=== PATIENT | male | born 1995 | race Caucasian/White ===

== ENCOUNTER 2018-08-25 13:07 | Emergency (ER) | payer BC ==
[2018-08-25] MEDS ORDERED: PROPOFOL 200 MG/20 ML VIAL ONE (13:16)
--- NOTE | 2018-08-25 13:16 | EDPHY ---
H & P Stated Complaint: r ankle inj Time Seen by Provider: 08/25/18 13:13 - Personal History Current Tetanus/Diphtheria Vaccine: Unsure Current Tetanus Diphtheria and Acellular Pertussis (TDAP): Unsure - Medical/Surgical History Hx Asthma: No Hx Chronic Respiratory Disease: No Hx Diabetes: No Hx Cardiac Disease: No Hx Renal Disease: No Hx Cirrhosis: No Hx Alcoholism: No Hx HIV/AIDS: No Hx Splenectomy or Spleen Trauma: No Constitutional: Initial Vital Signs Temperature (C) 36.9 C 08/25/18 13:11 Heart Rate 126 H 08/25/18 13:11 Respiratory Rate 16 08/25/18 13:11 Blood Pressure 133/89 H 08/25/18 13:11 O2 Sat (%) 94 08/25/18 13:11 O2 Delivery Mode [Post Room Air Procedure 1st] O2 Delivery Mode [Procedural Non-Rebreather Mask 1st] O2 Delivery Mode [.Immediate Non-Rebreather Mask Pre-Procedure] O2 Delivery Mode Room Air O2 (L/minute) [Procedural 1st] 15 O2 (L/minute) [.Immediate Pre- 15 Procedure] O2 (L/minute) 15 Allergies/Adverse Reactions: No Known Allergies Allergy (Unverified 08/25/18 13:09) Home Medications: Medication Instructions Recorded AMOXICILLIN 08/25/18 Hydrocodone/APAP 5/325 [[place]atte 1 - 2 each PO Q4-6PRN PRN #20 tab 08/25/18 5/325] Ibuprofen [Motrin] 800 mg PO Q8 #20 tab 08/25/18 Medical Decision Making - Diagnostics Imaging Results: Imaging Impressions Ankle X-Ray 08/25/18 00:00 Impression: Interval reduction of dislocation with nonvisualization tiny fracture fragment seen previously. Ankle X-Ray 08/25/18 00:00 Impression: Subtalar dislocation with small osseous fragments proximal to the navicular. Imaging: Discussed imaging studies w/ call or contact centre manager Radiologist, I viewed and interpreted images myself ED Course/Re-evaluation: CHIEF COMPLAINT: Right ankle injury HISTORY OF PRESENT ILLNESS: The patient is a 22 y/o male arriving via private vehicle complaining of a right ankle injury after skateboarding today. Yesterday he was skateboarding and rolled his ankle but did not seek medical treatment. Today he was skateboarding down a flight of stairs when he missed the landing and injured his ankle. He has been unable to bear weight on the ankle due to pain. He last ate or drank anything this morning. No fever, headache, body aches, lightheadedness, chest pain, heart palpitations, shortness of breath, cough, abdominal pain, urinary or bowel complaints, numbness, paresthesias. REVIEW OF SYSTEMS: A 10 point review of systems was performed and is negative with the exception of the elements mentioned in the history of present illness. PHYSICAL EXAM: HR, BP, O2 Sat, RR. Temp noted General Appearance: Alert, well hydrated, appropriate, and non-toxic appearing. Head: Atraumatic without scalp tenderness or obvious injury Eyes: Pupils equal, round, reactive to light and accommodation, EOMI, no trauma , no injection. Ears: Clear bilaterally, no perforation, normal landmarks Nose: Atraumatic, no rhinorrhea, clear. Throat: There is no erythema or exudates, no lesions, normal tonsils, mucus membranes moist. Neck: Supple, 2+ carotid upstroke, nontender, no lymphadenopathy. Respiratory: No retractions, no distress, no wheezes, and no accessory muscle use. Lungs are clear to auscultation bilaterally. Cardiovascular: Regular rate and rhythm, no murmurs, rubs, or gallops. Bilateral carotid, radial, dorsalis pedis, and posterior tibial pulses intact. Good capillary refill all extremities. Gastrointestinal: Abdomen is soft, nontender, non-distended, no masses, no rebound, no guarding, no peritoneal signs. Musculoskeletal: Right ankle lateral skin tenting. Abrasion over right lateral malleolus. Neurovascularly intact below the injury, has stable joints above and below, no signs of open fracture, and no signs of compartment syndrome. Otherwise normal active ROM of all extremities, atraumatic. Neurological: Alert, appropriate, and interactive. The patient has normal DTRs and non-focal cranial nerves, motor, sensory, and cerebellar exam. Skin: No rashes, good turgor, no nodules on palpation. Past medical history: Rib fracture Past surgical history: Denies Family history: Denies Social history: Student at , single, lives in [place] DIAGNOSTICS/PROCEDURES/CRITICAL CARE TIME: Right ankle x-ray: Right sub-talar dislocation. No signs of fracture. Procedure: Conscious sedation. Indication: Reduction of Dislocation of Ankle The patient is an appropriate candidate to tolerate procedural sedation. The patient's vitals signs and mental status are appropriate. The risks, benefits and alternatives of the sedation were discussed with the patient. The patient is ASA classification 1. The patient's Mallampati airway score was 1 and the patient did meet the 3-3-2 airway measurements. A time out was completed. The patient was sedated with 60mg IV Propofol and 20mg IV Ketamine . The patient was monitored with continuous pulse oximetry, personnel monitor and end tidal CO2. There were no complications and no significant hypoxemia. I performed both the sedation and the procedure. The total time I spent at the bedside during the procedural sedation was 20 minutes. The patient was examined after the procedural sedation and has returned to their pre-sedation baseline with normal vital signs and a normal examination. Procedure: Reduction of Dislocation of Ankle Time-out completed immediately before the procedure. IV established. O2 administered. Placed on pulse oximeter and ETCO2 monitor. Neurovascular exam intact pre-procedure. Given 60mg IV Propofol and 20mg IV Ketamine for pain and sedation. The right ankle dislocation was reduced using traction. Reassessed post-procedure. Neurovascular status intact-normal Motor and sensory exam. Exam indicated reduction. Confirmed reduction on X-ray. Splint applied by the tech. The procedure was performed by myself, Dr. Schulz. Right ankle x-ray post-reduction: Good reduction of the right sub-talus dislocation. Right ankle CT: 3 small avulsions off the right talus. DIFFERENTIAL DIAGNOSIS: The differential diagnosis for the patient's ankle injury included but was not limited to dislocation, fracture, ligamentous injury, contusion, muscular strain. MEDICAL DECISION MAKING: The patient is a 22 y/o male arriving via private vehicle presenting with a right ankle injury after skateboarding today. Today he was skateboarding down a flight of stairs when he missed the landing and injured his ankle. On exam he has lateral tenting of the skin of the right ankle. I suspect he has a right ankle dislocation. He is neurovascularly intact below the injury, has stable joints above and below, no signs of open fracture, and no signs of compartment syndrome. Right ankle x-ray ordered. Patient will be moved to trauma room 1 for the ankle dislocation reduction. He is comfortable with this plan. 1324: 60mg IV Propofol and 20mg IV Ketamine administered. 1328: I consulted with Dr. Pereyra who was in the room during the reduction. Right ankle CT ordered per Dr. Pereyra to rule out occult fracture. 1420: I spoke with Dr. Goncalves, radiologist, who reports that there are 3 small avulsions off the right talus. 1423: Reassessed patient and discussed CT findings. His splint is applied well. I have advised him to follow up with Dr. Pereyra.I have also advised him to take Platte and Motrin as prescribed. Return precautions provided; patient is comfortable with this plan. - Data Points Medications Given: Discontinued Medications Ketamine HCl (Ketamine) 20 mg IVP EDNOW ONE Stop: 08/25/18 13:45 Last Admin: 08/25/18 13:20 Dose: 20 mg Propofol (Diprivan) 60 mg IVP EDNOW ONE Stop: 08/25/18 13:45 Last Admin: 08/25/18 13:20 Dose: 60 mg Departure - Departure Disposition: Home, Routine, Self-Care Clinical Impression: Dislocation of ankle Qualifiers: Encounter type: initial encounter Laterality: right Qualified Code(s): S93.04XA - Dislocation of right ankle joint, initial encounter Talus fracture Qualifiers: Encounter type: initial encounter Fracture type: closed Talus location: unspecified portion of talus Fracture alignment: displaced Laterality: right Qualified Code(s): S92.101A - Unspecified fracture of right talus, initial encounter for closed fracture Condition: Good Instructions: Crutch Instructions (ED), Talar Fracture in Adults (ED), Ankle Dislocation (ED) Additional Instructions: 1. Rest, ice, elevation. 2. Follow up with an orthopedic surgeon within one week. 3. Return to the emergency department for worsening pain, swelling, numbness, weakness or other concerns. 4. Wear splint at all times until reevaluation. 5. Take Platte and Motrin as prescribed. Referrals: Wale Pereyra MD [Medical Doctor] - As per Instructions Prescriptions: Hydrocodone/APAP 5/325 [Platte 5/325] 1 - 2 each PO Q4-6PRN PRN #20 tab PRN Reason: Pain, Moderate Ibuprofen [Motrin] 800 mg PO Q8 #20 tab Report Scribed for: Arcenio Schulz Report Scribed by: Lanny Terry Date of Report: 08/25/18 Time of Report: 13:24
[2018-08-25] MEDS ORDERED: KETAMINE 200 MG/20 ML VIAL ONE (13:17)
[2018-08-25] MEDS ORDERED: KETAMINE 500 MG/10 ML VIAL IVP ONE (13:44)
[2018-08-25] MEDS ORDERED: PROPOFOL 200 MG/20 ML VIAL IVP ONE (13:44)
[2018-08-25 14:57] VITALS: BP 99/53
== END 2018-08-25 14:55 | disposition home or self-care (01) ==
PROC: 0SS Lower Joints, Reposition (ICD-10-PCS; principal; 2018-08-25)
DX: S92.191A Other fracture of right talus, initial encounter for closed fracture (principal); S93.04XA Dislocation of right ankle joint, initial encounter; V00.138A Other skateboard accident, initial encounter; Y93.51 Activity, roller skating (inline) and skateboarding
CPT/HCPCS: J2704

== ENCOUNTER 2018-09-01 10:54 | Emergency (ER) | payer BC ==
--- NOTE | 2018-09-01 11:16 | EDPHY ---
H & P Smoking Status: Current some day smoker Time Seen by Provider: 09/01/18 11:05 HPI/ROS: CHIEF COMPLAINT: Right foot swelling HISTORY OF PRESENT ILLNESS: 22-year-old male initially seen the ER 6 days ago for right ankle injury after he rolled his foot and ankle skateboarding. He was found to have a subtalar dislocation as well as 3 small avulsion fractures off the right talus. He is given orthopedic follow-up information with Dr. Wale Pereyra whom he has not followed up yet. He was initially placed into a splint was changed to a [place] boot at [employer] this past week. He has not been keeping the area consistently elevated secondary to being busy with school work and final examinations. He is in the ER concerned about soft tissue swelling, ecchymosis as well as an area in the right lateral foot with erythema. Denies: Fever, chills, lymphangitic streaking, fetid odor PHYSICAL EXAM (Prior to examination, patient consented to physical exam, hands were washed and my usual and customary physical exam procedures followed) 1) GENERAL: Well-developed, well-nourished, alert and oriented. Appears to be in no acute distress. 2) HEAD: Normocephalic 3) HEENT: Pupils equal, round, reactive to light bilaterally. 4) LUNGS: Breathing comfortably. 5) MUSCULOSKELETAL: Right lower extremity: Ecchymosis from the ankle distally in a dependent orientation. There is no lymphangitic streaking. Soft compartments throughout including the foot and the calf. proximal tibia and fibula nontender .5th MT nontender negative Rosenbaum test, compartments soft 6) SKIN: There is granulating right lateral ankle with halo erythema no lymphangitic streaking. 7) VASCULAR: DP,PT pulses and cap refill present and brisk (Jake Chavis) Constitutional: Initial Vital Signs Temperature (C) 36.4 C 09/01/18 10:58 Heart Rate 74 09/01/18 10:58 Respiratory Rate 18 09/01/18 10:58 Blood Pressure 137/76 H 09/01/18 10:58 O2 Sat (%) 98 09/01/18 10:58 O2 Delivery Mode Room Air Allergies/Adverse Reactions: No Known Allergies Allergy (Verified 09/01/18 10:58) Home Medications: Medication Instructions Recorded AMOXICILLIN 08/25/18 Hydrocodone/APAP 5/325 [[place] 1 - 2 each PO Q4-6PRN PRN #20 tab 08/25/18 5/325] Ibuprofen [Motrin] 800 mg PO Q8 #20 tab 08/25/18 Cephalexin [Keflex] 500 mg PO TID 7 Days cap 09/01/18 MDM/Departure - [facility] ED Course/Re-evaluation: I reviewed this patient's old medical records and xrays. He has soft compartments. Doubt compartment syndrome. He is noted to have dependent edema and ecchymosis which is consistent with his recent injury. He has not been keeping the area consistently elevated. Doubt diffuse cellulitis. I stressed the importance of consistent elevation and cold packs. He is noted to have a granulating abrasion to the right lateral ankle with halo erythema which I think is consistent with early cellulitis and I think can be treated on outpatient basis with oral Keflex. He has not followed up with Orthopedics I stressed the importance of follow- up with his initial referral Dr. Wale Pereyra. Today is Monday. Recommend contact Dr. Wale Pereyra office on Monday to be seen later this week.. Patient feels comfortable being discharged. All questions and concerns addressed by myself. Patient given my usual and customary discharge precautions and instructions regarding their clinical impression. Care of patient under supervision of primary supervising physician Dr Aceves . (Jake Chavis) PHYSICIAN DOCUMENTATION: The patient was evaluated and managed by the Physician Assistant Hvac Mechanic. My co- signature indicates that I have reviewed this chart and I agree with the findings and plan of care as documented. I am the secondary supervising physician. (Loyd Aceves) - Depart Disposition: Home, Routine, Self-Care Clinical Impression: Dependent edema Infected abrasion of right ankle Qualifiers: Encounter type: initial encounter Qualified Code(s): S90.511A - Abrasion, right ankle, initial encounter Condition: Good Instructions: Leg Edema (ED), Ecchymosis (ED) Additional Instructions: Return to the ER immediately if you experience discoloration, have worsening pain, numbness, tingling, or any other symptoms that concern you. If you received x-rays in the emergency department today, be advised, that ligamentous , tendon, muscular, and other non-bony injury cannot be fully ruled out. Try to keep your affected extremity elevated above the level of your chest, and keep cold packs on the affected area Return to the ER if you develop redness, swelling, discharge, warmth to the wound, red streaks going up your leg, or any other symptoms that concern you. Prescriptions: Cephalexin [Keflex] 500 mg PO TID 7 Days cap Referrals: Wale Pereyra MD [Medical Doctor] - 2-3 days, call for appt.
[2018-09-01 11:50] VITALS: BP 117/79
== END 2018-09-01 11:47 | disposition home or self-care (01) ==
DX: R60.9 Edema, unspecified (principal); S90.511D Abrasion, right ankle, subsequent encounter